=== PATIENT | male | born 1965 | race Caucasian/White ===

== ENCOUNTER 2017-09-08 19:40 | Emergency (ER) | payer BC, MEDICAID ==
[2017-09-08 19:48] VITALS: BP 143/91
== END 2017-09-08 21:04 | disposition left against medical advice (07) ==
LOC: ED 19:40
DX: Z53.9 Procedure and treatment not carried out, unspecified reason (principal)

== ENCOUNTER 2021-05-15 20:18 | Emergency (ER) | payer MEDICAID ==
[2021-05-15 20:26] VITALS: BP 168/103
--- NOTE | 2021-05-15 21:13 | ED Physician Documentation ---
PD HPI OPHTHO - Stated complaint Stated Complaint: FB LT EYE - Chief complaint Chief Complaint: Heent - History obtained from History obtained from: Patient - Additional information Additional information: Pt comes to the ED with CC of FB to L eye 1 week ago. He states he was weed eating at that time, and felt something fly into his eye. He states he has irrigated the eye multiple times since, but has a FB sensation under his upper eyelid. The eye has become increasingly inflamed over the past week. Mildly blurry vision. No use of contacts. No fever, chills, or upper respiratory sx. No h/o eye pathology. Review of Systems Ten Systems: 10 systems reviewed and negative Constitutional: reports: Reviewed and negative Eyes: reports: Photophobia, Discharge, Irritation Ears: reports: Reviewed and negative Nose: reports: Reviewed and negative Throat: reports: Reviewed and negative Cardiac: reports: Reviewed and negative Respiratory: reports: Reviewed and negative GI: reports: Reviewed and negative : reports: Reviewed and negative Skin: reports: Reviewed and negative Musculoskeletal: reports: Reviewed and negative Neurologic: reports: Reviewed and negative Psychiatric: reports: Reviewed and negative Endocrine: reports: Reviewed and negative Immunocompromised: reports: Reviewed and negative PD PAST MEDICAL HISTORY - Past Surgical History Past Surgical History: No - Present Medications Home Medications: Ambulatory Orders Medication Instructions Recorded Confirmed Aspirin [Aspir 81] 325 mg PO 01/29/15 01/29/15 Cephalexin [Keflex] 500 mg PO QID #20 capsule 01/29/15 Docusate Sodium [Stool Softener] 50 mg PO 01/29/15 01/29/15 Naproxen [Naprosyn] 500 mg PO BID #20 tablet 01/29/15 Oxycodone HCl/Acetaminophen 1 - 2 each PO Q6H PRN #30 tablet 01/29/15 [Percocet 5-325 mg Tablet] Senna [Senokot] 8.6 mg PO DAILY 01/29/15 01/29/15 Sulfamethoxazole/Trimethoprim 1 each PO 10 #0 tablet 01/29/15 [Bactrim Ds Tablet] oxyCODONE/ACET 5/325 [Percocet 5 1 each PO Q4-6H 01/29/15 01/29/15 mg/325 mg] Gentamicin 0.3% Ophth Drops 1 drops OPTH TID #5 ml 05/15/21 [Garamycin] - Allergies Allergies/Adverse Reactions: Allergies Allergy/AdvReac Type Severity Reaction Status Date / Time codeine Allergy Unknown Verified 05/15/21 20:26 - Social History Does the pt smoke?: No Smoking Status: Never smoker Does the pt drink ETOH?: Yes Does the pt have substance abuse?: No - Immunizations Immunizations are current?: Yes - POLST Patient has POLST: No PD ED PE NORMAL - Vitals Vital signs reviewed: Yes - General General: Alert and oriented X 3, No acute distress, Well developed/nourished - HEENT HEENT: Atraumatic, PERRL, EOMI, Moist mucous membranes, Other (Marked L conjunctival injection. Beefy eyelid mucosa. No FB on fluorscein exam with magnification. Single punctate lesion without FB at 1:00 position over iris. No other abrasions. No FB under lids.) - Neck Neck: Supple, no meningeal sign - Respiratory Respiratory: No respiratory distress - Derm Derm: Warm and dry - Neuro Neuro: Alert and oriented X 3, educational program assistant 2-12 intact, Normal speech - Psych Psych: Normal mood, Normal affect Results - Vitals Vitals: Vital Signs - 24 hr 05/15/21 20:22 Temperature 36.8 C Heart Rate 98 Respiratory 18 Rate Blood Pressure 168/103 H O2 Saturation 100 Oxygen O2 Source Room air PD MEDICAL DECISION MAKING - ED course Complexity details: considered differential, d/w patient ED course: No FB found on exam. Pt underwent eye irrigation with Shady lens in the ED. He was started on gentamicin ophthalmic drops. We have discussed follow-up with ophthalmology if not noticeable improvement in the next 3 days. Departure - Departure Disposition: 01 Home, Self Care Clinical Impression: Corneal abrasion Conjunctivitis Qualifiers: Conjunctivitis type: acute Acute conjunctivitis type: bacterial Laterality: right Qualified Code(s): H10.31 - Unspecified acute conjunctivitis, right eye Condition: Stable Instructions: ED Conjunctivitis Bacterial Follow-Up: Andrew Smith MD [Provider Admit Priv/Credential] - Óscar Corrigan MD [Provider Admit Priv/Credential] - Prescriptions: Gentamicin 0.3% Ophth Drops [Garamycin] 1 drops OPTH TID #5 ml Comments: We did not find any foreign material in your eye today. However, your eye is extremely inflamed and there was one very small, pinpoint divot in the surface of your eye, overlying the iris, or colored part of your eye. This could represent a defect from a foreign body that was there but has now washed away, or it could be a result of the infection in your eye. What ever the case, you do not have a foreign body now, but do need to be on antibiotics because you roberto ve developed infection of the eye. Please take the antibiotic drops 3 times every day. If you do not notice any improvement in the next few days, you need to follow-up with ophthalmology. Please call the number provided for this. Discharge Date/Time: 05/15/21 21:26
[2021-05-15] MEDS: GENTAMICIN 0.3% OPHTH DROPS LEFTEYE STA (21:23)
== END 2021-05-15 21:26 | disposition home or self-care (01) ==
LOC: ED 20:18
DX: S05.02XA Injury of conjunctiva and corneal abrasion without foreign body, left eye, initial encounter (principal); X58.XXXA Exposure to other specified factors, initial encounter; Y93.H2 Activity, gardening and landscaping; H10.31 Unspecified acute conjunctivitis, right eye; Z79.82 Long term (current) use of aspirin
CPT/HCPCS: 99282; 99283; A9270

== ENCOUNTER 2024-02-26 13:17 | Emergency (ER) | payer MEDICAID ==
[2024-02-26 13:40] VITALS: BP 130/91; O2SAT 98
--- NOTE | 2024-02-26 13:40 | ED Physician Documentation ---
PD HPI OPHTHO - Stated complaint Stated Complaint: BILAT EYE PX,SWELLING,REDDNESS - Chief complaint Chief Complaint: Heent - History obtained from History obtained from: Patient - History of Present Illness Timing - onset: Today, Yesterday Timing - details: Abrupt onset (onset yesterday of bilateral eye irritation with redness and sweling that has increaed significantly overnight, with purulence at lid margins today as well. had rubbed eyes with hands yesteday whgile fisyhing, after catching a salmon. But had also had sore throat and runny nose for a day or two.), Still present Review of Systems Constitutional: denies: Fever, Chills Eyes: reports: Decreased vision, Discharge, Irritation. denies: Photophobia Ears: denies: Ear pain Nose: reports: Rhinorrhea / runny nose Throat: reports: Sore throat Respiratory: denies: Cough PD PAST MEDICAL HISTORY - Past Medical History Past Medical History: Yes Cardiovascular: Hypertension Respiratory: None Neuro: None Endocrine/Autoimmune: None GI: None : None HEENT: None Psych: None Musculoskeletal: None Derm: None - Past Surgical History Past Surgical History: Yes Ortho: Other - Present Medications Home Medications: Ambulatory Orders Medication Instructions Recorded Confirmed Albuterol Sulf [Ventolin Hfa 1 - 2 puffs INH Q4HR PRN #1 each 08/09/23 Inhaler] Amox/Clav 875/125 [Augmentin] 1 each PO Q12H #10 tablet 08/09/23 Benzonatate [Tessalon] 200 mg PO TID PRN #20 cap 08/09/23 Doxycycline [Vibramycin] 100 mg PO BID #10 tablet 08/09/23 Flurbiprofen Sodium 1 drops EACHEYE QID 4 Days #2.5 ml 02/26/24 Ketotifen Fumarate [Eye Itch 2 drops RIGHTEYE QID PRN #5 ml 02/26/24 Relief] Neomycin/Poly/Dex Ophth Drops 1 drops EACHEYE QID 5 Days #5 ml 02/26/24 [Maxitrol Ophth Drops] - Allergies Allergies/Adverse Reactions: Allergies Allergy/AdvReac Type Severity Reaction Status Date / Time codeine Allergy Unknown Verified 02/26/24 13:37 - Social History Does the pt smoke?: No Smoking Status: Never smoker Does the pt drink ETOH?: Yes Does the pt have substance abuse?: No - Immunizations Immunizations are current?: Yes - POLST Patient has POLST: No PD ED PE NORMAL - Vitals Vital signs reviewed: Yes - General General: Alert and oriented X 3, Well developed/nourished - HEENT HEENT: PERRL, EOMI, Other (marked redness with conjunctival edema both eyes, and purulent matting along eyelid margins. anterior chambers normal. No light sensitivity.) Results - Vitals Vitals: Vital Signs - 24 hr 02/26/24 13:29 Temperature 36.7 C Heart Rate 79 Respiratory 18 Rate Blood Pressure 130/91 H O2 Saturation 98 Oxygen O2 Source Room air PD Medical Decision Making - ED course Complexity details: considered differential (The patient has had some mild malaise and sore throat and cough for couple of days prior to the onset of redness excuse me and inflammation of both eyes. However he had gone salmon fishing yesterday and after catching the fish, he did have some dirt and sweat in his eyes and did rub his eyes.), d/w patient ED course: At this point both eyes are red swollen and puffy with some matting. He had had mild upper respiratory symptoms so consideration for adenovirus with the concurrent conjunctivitis. However he did have rubbing of his eyes after catching a salmon yesterday so consideration of contact irritant conjunctivitis or even bacterial. As such I would combine treatment with not only an antibiotic eyedrop but also anti-inflammatory and antihistamine. These will be sent to [facility] pharmacy at his direction. Departure - Departure Disposition: 01 Home, Self Care Clinical Impression: Conjunctivitis Qualifiers: Conjunctivitis type: acute Acute conjunctivitis type: unspecified Laterality: bilateral Qualified Code(s): H10.33 - Unspecified acute conjunctivitis, bilateral Condition: Stable Record reviewed to determine appropriate education?: Yes Instructions: ED Conjunctivitis Nonspecific Prescriptions: Ketotifen Fumarate [Eye Itch Relief] 2 drops RIGHTEYE QID PRN #5 ml PRN Reason: Itching Flurbiprofen Sodium 1 drops EACHEYE QID 4 Days #2.5 ml Neomycin/Poly/Dex Ophth Drops [Maxitrol Ophth Drops] 1 drops EACHEYE QID 5 Days #5 ml Comments: It is hard to tell if this is an acute allergic reaction or contact irritation in which case would use anti-inflammatory and antihistamine eyedrops. Consideration would be infectious as well so adding an antibiotic eyedrop. I sent these 3 drops prescriptions to [facility] in [place]. Cleanse your eyes gently with just water to get off any buildup discharge. You can use cleansing drops such as saline. Use all 3 of the drops concurrently 4 times a day for the next 4 to 5 days to help with your symptoms. I would anticipate improvement over the next couple of days and resolved by a few days. Forms: PCP List Discharge Date/Time: 02/26/24 14:40
[2024-02-26] MEDS: PROPARACAINE 0.5% OPHTH DROPS 15 ML EACHEYE STA (14:22)
[2024-02-26] MEDS: ERYTHROMYCIN OPHTH OINT 1 GM TUBE EACHEYE STA (14:23)
== END 2024-02-26 14:40 | disposition home or self-care (01) ==
LOC: ED 13:17
DX: H10.33 Unspecified acute conjunctivitis, bilateral (principal); I10 Essential (primary) hypertension
CPT/HCPCS: 99283; J3490